=== PATIENT | female | born 1970 | race American Indian/Alaskan Native ===

== ENCOUNTER 2019-10-02 18:57 | Emergency (ER) | payer OTHER ==
--- NOTE | 2019-10-02 21:50 | Event Note ---
ED Screening Note Date of service: 10/02/19 Time: 21:49 ED Screening Note: 48 y o f with hx of asthma presents with yellow prod cough, throat pain and ear pain This initial assessment/diagnostic orders/clinical plan/treatment(s) is/are subject to change based on patients health status, clinical progression and re- assessment by fellow clinical providers in the ED. Further treatment and workup at subsequent clinical providers discretion. Patient/guardian urged not to elope from the ED as their condition may be serious if not clinically assessed and managed. Initial orders include: cxr acc eval
--- NOTE | 2019-10-02 22:36 | XRay Report ---
CHEST PA AND LATERAL VIEWS INDICATION: cough/. COMPARISON: None. FINDINGS: Support devices: None. Heart: Within normal limits. Lungs/Pleura: No acute pulmonary or pleural findings. Diffuse thoracic spondylosis is noted with fused anterior spondylophytes. IMPRESSION: 1. No acute findings. Signer Name: Todd Ferreira MD Signed: 10/02/2019 10:32 PM Workstation Name: [id number]
--- NOTE | 2019-10-03 00:16 | Emergency Department Report ---
Minor Respiratory - HPI Chief Complaint: Adult Asthma Stated Complaint: GENERAL ILLNESS Time Seen by Provider: 10/02/19 23:55 Duration: 5 Days Pain Location: Throat, Nose Severity: mild Minor Respiratory: Yes Rhinorrhea, Yes Sore Throat, Yes Able to Tolerate Fluids, Yes Ear Pain (left ear), Yes Cough, Yes Chest Pain, No Sick Contacts, No Hemoptysis, No Shortness of Breath, No Fever Other History: This is a 48-year-old -[place] female who presents the emergency room with cough, left ear pain, sore throat for 5 days. Patient states she is taking TheraFlu for few days with no change in symptoms. Past medical history of asthma. Patient states she is using breathing treatments with minimal change in symptoms. Denies chest pain, palpitations, shortness of breath, wheezing, nausea, vomiting, fever, or headache. ED Review of Systems ROS: Stated complaint: GENERAL ILLNESS Other details as noted in HPI Constitutional: denies: chills, fever ENT: throat pain, congestion. denies: ear pain Respiratory: cough. denies: shortness of breath, wheezing Cardiovascular: chest pain. denies: palpitations Gastrointestinal: denies: abdominal pain, nausea, diarrhea Musculoskeletal: denies: back pain, joint swelling, arthralgia Skin: denies: rash, lesions Neurological: denies: headache, weakness, paresthesias Psychiatric: denies: anxiety, depression ED Past Medical Hx - Past Medical History Previous Medical History?: Yes Hx Asthma: Yes - Surgical History Past Surgical History?: No - Social History Smoking Status: Never Smoker - Medications Home Medications: Home Medications Medication Instructions Recorded Confirmed Last Taken Type Chlorhexidine Mouthwash [Peridex] 118 ml MM BID #1 bottle 04/18/16 Unknown Rx HYDROcodone/APAP 7.5-325 [[place] 1 each PO Q8HR PRN #10 tablet 04/18/16 Unknown Rx 7.5-325 mg TAB] Ibuprofen [Motrin] 800 mg PO Q8HR PRN #14 tablet 04/18/16 Unknown Rx Penicillin Vk [Veetids TAB] 250 mg PO QID #15 tablet 04/18/16 Unknown Rx hydroCHLOROthiazide [HCTZ] 25 mg PO QDAY #30 tablet 04/18/16 Unknown Rx Benzonatate [Tessalon Perles] 100 mg PO Q8HR PRN #30 capsule 10/03/19 Unknown Rx methylPREDNISolone [Medrol 4MG 4 mg PO DAILY #1 tab.ds.pk 10/03/19 Unknown Rx DOSEPAK (21 tabs)] Minor Respiratory Exam - Exam General: Vital signs noted. No distress. Alert and acting appropriately. HEENT: Yes Pharyngeal Erythema (Erythematous posterior pharynx, uvula midline), Yes Moist Mucous Membranes, Yes Rhinorrhea (Turbinates congested with clear discharge), No Pharyngeal Exudates, No Conjuctival Injection, No Frontal Tenderness, No Maxillary Tenderness Ear: Neither TM Bulge, Neither TM Erythema, Neither EAC Pain, Neither EAC Discharge Neck: Yes Supple, No Adenopathy Lungs: Yes Good Air Exchange, No Wheezes, No Ronchi, No Stridor, No Cough, No Labored Respirations, No Retractions, No Use of Accessory Muscles, No Other Abnormal Lung Sounds Heart: Yes Regular, No Murmur Abdomen: Yes Normal Bowel Sounds, No Tenderness, No Peritoneal Signs Skin: No Rash, No Edema Neurologic: Alert and oriented, no deficits. Musculoskeletal: Unremarkable. ED Course Vital Signs 10/02/19 21:48 Temperature 98.7 F Pulse Rate 100 H Respiratory 18 Rate Blood Pressure 154/95 O2 Sat by Pulse 97 Oximetry ED Medical Decision Making - Radiology Data Radiology results: report reviewed CHEST PA AND LATERAL VIEWS INDICATION: cough/. COMPARISON: None. FINDINGS: Support devices: None. Heart: Within normal limits. Lungs/Pleura: No acute pulmonary or pleural findings. Diffuse thoracic spondylosis is noted with fused anterior spondylophytes. IMPRESSION: 1. No acute findings. - Medical Decision Making 48 y.o. female that presents with cough and left ear pain for 5 days. Patient examined by me and stable. Past medical history of asthma. No distress noted. Vitals stable. Workup: chest xray. Chest xray negative for acute cardiopulmonary findings. Cough may be related to bronchitis due to viral trigger. Will give symptomatic treatment with a short course of steroids and cough suppressant. Patient informed this is a self-limiting illness and should resolve in 1 to 3 weeks. Discharged home stable. Follow up with Primary Care Provider in 2-3 days. Patient given strict return instructions. Critical care attestation.: If time is entered above; I have spent that time in minutes in the direct care of this critically ill patient, excluding procedure time. ED Disposition Clinical Impression: Cough in adult, Bronchitis Disposition: - TO HOME OR SELFCARE Is pt being admited?: No Condition: Stable Instructions: Acute Bronchitis (ED) Additional Instructions: Increase fluid intake and rest. Wash hands frequently. F/U with Primary Care Provider. Return to ER if fever, SOB, or difficulty breathing after 48 hours of supportive care. Prescriptions: methylPREDNISolone [Medrol 4MG DOSEPAK (21 tabs)] 4 mg PO DAILY #1 tab.ds.pk Benzonatate [Tessalon Perles] 100 mg PO Q8HR PRN #30 capsule PRN Reason: Cough Referrals: [facility] [Provider Group] - 3-5 Days NETTIE ERICKSON MD [Staff Physician] - 3-5 Days [facility] [Provider Group] - 3-5 Days Forms: Work/School Release Form(ED) Time of Disposition: 00:40
[2019-10-03 01:27] VITALS: BP 153/82
== END 2019-10-03 00:47 | disposition home or self-care (01) ==
LOC: ED 18:57
DX: J40 Bronchitis, not specified as acute or chronic (principal); R05 Cough; Z79.899 Other long term (current) drug therapy; Z87.09 Personal history of other diseases of the respiratory system
CPT/HCPCS: 71046

== ENCOUNTER 2020-03-19 13:34 | Outpatient (CLI) | payer OTHER ==
--- NOTE | 2020-03-20 10:00 | Mammography Report ---
DIGITAL SCREENING MAMMOGRAM WITH CAD, 03/19/2020 INDICATION: Routine screening mammography. TECHNIQUE: Digital bilateral 2D mammography was obtained in the craniocaudal and mediolateral obliq ue projections. This examination was interpreted with the benefit of Computer-Aided Detection analysi s. COMPARISON: Baseline mammogram FINDINGS: Breast Density: The breasts are almost entirely fatty. There is no evidence of dominant mass, suspicious calcifications or architectural distortion in eithe r breast. IMPRESSION: No evidence of malignancy. Follow up recommendation: Routine yearly BI-RADS Category 1: Negative. A "normal" or negative report should not discourage follow up or biopsy of a clinically significant f inding. A written summary of these findings will be mailed to the patient. The patient will be entered into a mammography reporting system which will generate a reminder letter for the patient's next appointmen t at the appropriate interval. The [employer] recommends yearly mammograms starting at age 40 and continuing as l yang as a woman is in good health. Breast MRI is recommended for women with an approximate 20-25% or greater lifetime risk of breast cancer, including women with a strong family history of breast or ova debora cancer or who have been treated for Hodgkin's disease. Signer Name: Denice Melendez MD Signed: 03/20/2020 9:56 AM Workstation Name: [email or web address]
== END 2020-03-19 13:35 | disposition home or self-care (01) ==
LOC: SPVWC 13:34
PROVIDERS: ATTEND Nurse Practitioner
DX: Z12.31 Encounter for screening mammogram for malignant neoplasm of breast (principal)
CPT/HCPCS: 77067